=== PATIENT | female | born 1980 | race Hispanic/Latino ===

== ENCOUNTER 2016-11-05 08:04 | Inpatient (IN) | payer OTHER ==
[2016-11-05] VITALS (22 sets, daily range): BP systolic 81–124; BP diastolic 49–75
[~2016-11-05] VITALS: Ht 160 cm; Wt 89.1 kg
[~2016-11-05 08:04] MED LIST: ACYCLOVIR PO; ACYCLOVIR400 MG PO; AMLODIPINE BESYL5 MG PO; ANTACID PO; DHA PRENATAL200 MG PO; FERROUS GLUCON324 MG PO; FISH OIL 1,0001 EAC7 PO; FLEXERIL5 MG PO; HYDROCHLOROTH12.5 M3 PO; IBUPROFEN800 MG PO; LIBRIUM25 MG PO; MACROBID100 MG PO; MOTRIN600 MG PO; Motrin PO; NAPROSYN500 MG PO; NATALCARE RX1 TABLE1 PO; OXYCODONE HCL5 MG PO; PRENATAL TABLE1 EAC3 PO; PROMETHAZINE HC25 M1 PO; RANITIDINE HCL75 MG PO; REGLAN10 MG PO; SERTRALINE HCL25 MG PO; TAMIFLU75 MG PO; TYLENOL WITH C1 EACH PO; ZOFRAN ODT4 MG PO; ZOFRAN4 MG PO
[2016-11-05] MEDS ORDERED: PROMETHAZINE12.5 M1 PO (08:30)
[2016-11-05] MEDS ORDERED: ZOFRAN4 MG PO (08:30)
[2016-11-05] MEDS ORDERED: VALTREX50 MG/ML PO (08:30)
[2016-11-05 09:34] LABS: EOSINOPHIL COUNT 0.1 K/uL (0-0.3); HEMATOCRIT 33.1 % (36.0-46.0); IMMATURE GRANULOCYTE (%) 0.5 % (0.0-0.7); IMMATURE GRANULOCYTE COUNT 0.1 K/uL; INSTRUMENT ABS NEUTROPHIL CT 6.2 K/uL; LYMPHOCYTE COUNT 2.4 K/uL (1.0-2.8); MCH 29.8 PG (29.0-34.0); MCHC 33.2 G/DL (30.0-36.0); MCV 89.7 FL (83-99); MEAN PLAT.VOLUME 10.9 uM^3 (9.5-12.4); MONOCYTE COUNT 0.7 K/uL (0-0.8); NEUTROPHIL COUNT 6.2 K/uL (1.8-6.4); PLATELET COUNT 215 K/uL (156-360); RBC DIS.WIDTH-CV 14.7 % (11.8-14.6); RBC DIS.WIDTH-SD 47.8 % (39-53); RED BLOOD COUNT 3.69 M/uL (3.80-5.20); WHITE BLOOD COUNT 9.4 K/uL (4.1-10.2)
[2016-11-06] VITALS (20 sets, daily range): BP systolic 79–117; BP diastolic 47–71
[2016-11-07 05:49] LABS: EOSINOPHIL (%) 1.1 % (0-5); EOSINOPHIL COUNT 0.1 K/uL (0-0.3); HEMATOCRIT 34.6 % (36.0-46.0); IMMATURE GRANULOCYTE (%) 0.6 % (0.0-0.7); IMMATURE GRANULOCYTE COUNT 0.1 K/uL; LYMPHOCYTE COUNT 2.8 K/uL (1.0-2.8); MCH 29.5 PG (29.0-34.0); MCHC 32.7 G/DL (30.0-36.0); MCV 90.3 FL (83-99); MEAN PLAT.VOLUME 11.3 uM^3 (9.5-12.4); MONOCYTE (%) 6.3 % (3-12); MONOCYTE COUNT 0.8 K/uL (0-0.8); NEUTROPHIL (%) 70.2 % (45-76); PLATELET COUNT 203 K/uL (156-360); RBC DIS.WIDTH-CV 14.6 % (11.8-14.6); RBC DIS.WIDTH-SD 48.3 % (39-53); RED BLOOD COUNT 3.83 M/uL (3.80-5.20); WHITE BLOOD COUNT 12.8 K/uL (4.1-10.2)
[2016-11-07 07:48] VITALS: BP 117/74
[2016-11-07] MEDS ORDERED: IBUPROFEN800 MG PO (10:22)
== END 2016-11-07 15:30 | disposition home or self-care (01) | DRG 774 ==
LOC: LDRP-OP 08:04 → 2WEST 08:05 → LDRP-OP 17:41 → 2WEST 11-06 07:52 → LDRP-OP 12-06 17:37
PROVIDERS: Advanced Practice Midwife
DX: O71.4 Obstetric high vaginal laceration alone (principal); O75.89 Other specified complications of labor and delivery; O99.214 Obesity complicating childbirth; E66.9 Obesity, unspecified; Z68.33 Body mass index [BMI] 33.0-33.9, adult; O99.62 Diseases of the digestive system complicating childbirth; K21.9 Gastro-esophageal reflux disease without esophagitis; O98.52 Other viral diseases complicating childbirth; B00.9 Herpesviral infection, unspecified; Z37.0 Single live birth; Z3A.40 40 weeks gestation of pregnancy
CPT/HCPCS: 85025; C1755; G0378; J0595; J2405; J2765; J2795; J3010; J7120; Q0169